=== PATIENT | male | born 1940 | race Two or more races ===

== ENCOUNTER 2017-02-02 09:03 | Emergency (ER) | payer MEDICARE, OTHER ==
[~2017-02-02] VITALS: Ht 167.6 cm; Wt 75.7 kg
[2017-02-02 09:19] VITALS: BP 119/57
== END 2017-02-02 10:02 | disposition home or self-care (01) ==
LOC: ER 09:03
DX: H66.3X2 Other chronic suppurative otitis media, left ear (principal); H60.92 Unspecified otitis externa, left ear

== ENCOUNTER 2017-07-05 11:28 | Emergency (ER) | payer OTHER ==
[~2017-07-05] VITALS: Ht 167.6 cm; Wt 75.7 kg
[2017-07-05 14:00] VITALS: BP 128/68
== END 2017-07-05 14:09 | disposition home or self-care (01) ==
LOC: ER 11:28
DX: S29.012A Strain of muscle and tendon of back wall of thorax, initial encounter (principal); X58.XXXA Exposure to other specified factors, initial encounter; Y93.89 Activity, other specified; Y99.8 Other external cause status; Y92.89 Other specified places as the place of occurrence of the external cause
CPT/HCPCS: 71020